=== PATIENT | female | born 1965 | race Caucasian/White ===

== ENCOUNTER 2019-08-23 20:40 | Emergency (ER) | payer OTHER ==
[~2019-08-23] VITALS: Ht 157.5 cm; Wt 102.7 kg
[~2019-08-23 20:40] MED LIST: ASPI-1271 PO; IBUP-2213 PO; METF500T PO; ORE25 PO
[2019-08-23 20:49] VITALS: BP 144/79
--- NOTE | 2019-08-23 20:52 | NUR ---
TO LOBBY A/W BED AMBULATORY
--- NOTE | 2019-08-23 22:12 | NUR ---
PATIENT AMB TO [facility].
--- NOTE | 2019-08-23 22:17 | NUR ---
PATIENT STATES SHE STARTED HAVING INTERMITTENT DIZZINESS ON FRIDAY. TODAY REPORTS HAVING HEAD PRESSURE AND DIZZINESS. PATIENT STATES THE DIZZINESS WILL HAPPEN WHEN SHE MAKE QUICK MOVES OR STANDS UP. PATIENT STATES NO NVD AT THIS TIME. PATIENT DENIES RESPIRITORY SYMPTOMS. NO HISTORY OF THESE SYMPTOMS. PMH: DM, HTN
--- NOTE | 2019-08-23 22:57 | NUR ---
labs collected and sent to lab.
[2019-08-23 23:00] LABS: BASOPHILS % (AUTO) 0.4 % (0.0-2.0); EOSINOPHILS # (AUTO) 0.1 K/uL (0-0.4); EOSINOPHILS % (AUTO) 1.7 % (0.0-4.0); HEMATOCRIT 44.3 % (36-48); HEMOGLOBIN 14.4 g/dL (12.0-16.0); LYMPHOCYTES # (AUTO) 1.7 K/uL (2.5-16.5); LYMPHOCYTES % (AUTO) 19.1 % (20.5-51.1); MEAN CORPUSCULAR HEMOGLOBIN 28 pg (27-31); MEAN CORPUSCULAR HGB CONC 33 g/dL (33-37); MEAN CORPUSCULAR VOLUME 86.5 fL (80-94); MONOCYTES # (AUTO) 0.5 K/uL (0.8-1.0); NEUTROPHILS # (AUTO) 6.5 K/uL (1.8-7.7); NEUTROPHILS % (AUTO) 72.8 % (42.2-75.2); PLATELET COUNT (AUTO) 293 K/uL (140-450); RED BLOOD CELL COUNT(AUTO) 5.12 MIL/uL (4.20-5.40); RED CELL DISTRIBUTION WIDTH 13.6 % (11.6-13.7); WHITE BLOOD COUNT (AUTO) 8.9 K/uL (4.8-10.8)
[2019-08-23 23:14] LABS: ANION GAP 15.9 (8-16); CARBON DIOXIDE 27.3 mmol/L (21-32); CREATININE 0.7 mg/dL (0.6-1.3); POTASSIUM 4.2 mmol/L (3.5-5.1)
[2019-08-24 00:21] VITALS: BP 97/58
--- NOTE | 2019-08-24 00:21 | NUR ---
Patient discharged with v/s stable. She states decreased pain and no dizziness at this time. Written and verbal after care instructions given and explained. Patient alert, oriented and verbalized understanding of instructions. Ambulatory with steady gait. All questions addressed prior to discharge. ID band removed. Patient advised to follow up with PMD. Rx of Meclazine given. Patient educated on indication of medication including possible reaction and side effects. Opportunity to ask questions provided and answered.
== END 2019-08-24 00:21 | disposition home or self-care (01) ==
LOC: MED 20:40
DX: R42 Dizziness and giddiness (principal); R51 Headache; E11.9 Type 2 diabetes mellitus without complications; I10 Essential (primary) hypertension; Z79.82 Long term (current) use of aspirin; Z79.84 Long term (current) use of oral hypoglycemic drugs; Z79.899 Other long term (current) drug therapy
CPT/HCPCS: 36415; 80048; 85025; 99283

== ENCOUNTER 2021-11-30 17:04 | Emergency (ER) | payer OTHER ==
[~2021-11-30] VITALS: Ht 154.9 cm; Wt 97.1 kg
[~2021-11-30 17:04] MED LIST changes: +HYDR-4004 PO; +METF-346 PO; -METF500T PO; -ORE25 PO
[2021-11-30 17:09] VITALS: BP 161/86
--- NOTE | 2021-11-30 17:17 | NUR ---
PT AMBULATED TO BED 04 WITH ASSISTANCE.
--- NOTE | 2021-11-30 17:21 | NUR ---
56 Y/O FEMALE BIB SON C/O 11/06 ACHING PAIN IN THE RIGHT SIDE BY THE RIB AREA, STATED THAT SHE WAS CLEANING THE BATHTUB AND LEANED TOO FORWARD ON THE EDGE OF THE TUB. HEARD A "CRUNCH". PAIN DURING DEEP INHALATION, NO BRUISES OR SKIN TEARS NOTED,. DENIED TAKING ANYTHING FOR PAIN. pmh: dm2, htn nka med: denies
--- NOTE | 2021-11-30 17:28 | NUR ---
[facility] AT BEDSIDE FOR FURTHER EVAL
[2021-11-30] MEDS ORDERED: KETOROLAC 30 MG/ML VIAL IM ONE (17:30)
[2021-11-30] MEDS ORDERED: CYCL-711 PO (18:42)
[2021-11-30] MEDS ORDERED: LID5T TP (18:42)
[2021-11-30] MEDS ORDERED: IBUP-2213 PO (18:42)
--- NOTE | 2021-11-30 19:00 | NUR ---
Patient discharged with v/s stable. Written and verbal after care instructions given and explained. Patient alert, oriented and verbalized understanding of instructions. Ambulatory with steady gait. All questions addressed prior to discharge. ID band removed. Patient advised to follow up with PMD. Rx of FLEXERIL, MOTRIN, LIDODERM, given. Patient educated on indication of medication including possible reaction and side effects. Opportunity to ask questions provided and answered.
== END 2021-11-30 19:00 | disposition home or self-care (01) ==
LOC: MED 17:04
DX: S20.211A Contusion of right front wall of thorax, initial encounter (principal); E11.9 Type 2 diabetes mellitus without complications; I10 Essential (primary) hypertension; Z79.4 Long term (current) use of insulin; X58.XXXA Exposure to other specified factors, initial encounter; Y93.89 Activity, other specified; Y92.89 Other specified places as the place of occurrence of the external cause; Y99.8 Other external cause status
CPT/HCPCS: 71101; 81002; 81025; 96372; 99283; J1885

== ENCOUNTER 2022-02-28 23:10 | Emergency (ER) | payer OTHER ==
[~2022-02-28] VITALS: Ht 154.9 cm; Wt 97.1 kg
[~2022-02-28 23:10] MED LIST changes: +CYCL-711 PO; +LID5T TP
[2022-02-28 23:13] VITALS: BP 153/83
[2022-03-01] MEDS ORDERED: ACET-10509 PO (00:54)
[2022-03-01] MEDS ORDERED: KETOROLAC 30 MG/ML VIAL IM ONE (00:55)
[2022-03-01] MEDS ORDERED: ACETAMINOPHEN 325 MG TAB PO ONE (00:55)
[2022-03-01 01:20] VITALS: BP 146/64
== END 2022-03-01 01:20 | disposition home or self-care (01) ==
LOC: MED 23:10
DX: S09.90XA Unspecified injury of head, initial encounter (principal); E11.9 Type 2 diabetes mellitus without complications; I10 Essential (primary) hypertension; Z79.899 Other long term (current) drug therapy; Z90.49 Acquired absence of other specified parts of digestive tract; Z98.890 Other specified postprocedural states; Z79.84 Long term (current) use of oral hypoglycemic drugs; Z79.82 Long term (current) use of aspirin; W23.0XXA Caught, crushed, jammed, or pinched between moving objects, initial encounter; Y93.89 Activity, other specified; Y92.89 Other specified places as the place of occurrence of the external cause; Y99.8 Other external cause status
CPT/HCPCS: 70450; 96372; 99284; J1885

== ENCOUNTER 2023-07-04 17:50 | Emergency (ER) | payer OTHER ==
[~2023-07-04] VITALS: Ht 154.9 cm; Wt 97.1 kg
[~2023-07-04 17:50] MED LIST changes: +ACET-10509 PO
[2023-07-04 18:04] VITALS: BP 166/85; PULSE 87; RESP 20; TEMP 97.4; O2SAT 100
[2023-07-04 18:16] VITALS: O2SAT 100
[2023-07-04] MEDS ORDERED: MECLIZINE 25 MG TAB PO ONE (18:20)
[2023-07-04 18:42] LABS: BASOPHILS % (AUTO) 0.6 % (0.0-2.0); EOSINOPHILS # (AUTO) 0.1 K/uL (0-0.4); EOSINOPHILS % (AUTO) 0.6 % (0.0-4.0); HEMATOCRIT 38.2 % (36-48); HEMOGLOBIN 13.1 g/dL (12.0-16.0); LYMPHOCYTES # (AUTO) 1.4 K/uL (2.5-16.5); LYMPHOCYTES % (AUTO) 17.2 % (20.5-51.1); MEAN CORPUSCULAR HEMOGLOBIN 29 pg (27-31); MEAN CORPUSCULAR HGB CONC 34 g/dL (33-37); MEAN CORPUSCULAR VOLUME 84.9 fL (80-94); MONOCYTES # (AUTO) 0.5 K/uL (0.8-1.0); MONOCYTES % (AUTO) 6.2 % (1.7-9.3); NEUTROPHILS % (AUTO) 75.4 % (42.2-75.2); PLATELET COUNT (AUTO) 255 K/uL (140-450); RED CELL DISTRIBUTION WIDTH 13.8 % (11.6-13.7)
[2023-07-04 18:57] LABS: ANION GAP 13.1 (8-16); CALCIUM 9.4 mg/dL (8.5-10.1); CARBON DIOXIDE 27.9 mmol/L (21-32); CREATININE 0.8 mg/dL (0.6-1.3)
[2023-07-04 19:04] LABS: ALANINE AMINOTRANSFERASE 16 U/L (12-78); ALBUMIN 3.7 g/dL (3.4-5.0); ALKALINE PHOSPHATASE 84 U/L (50-136); ASPARTATE AMINOTRANSFERASE 15 U/L (15-37); BILIRUBIN,DIRECT 0.1 mg/dL (0.0-0.3); TOTAL BILIRUBIN 0.5 mg/dL (0.0-1.0); TOTAL PROTEIN, SERUM 8.6 g/dL (6.4-8.2)
[2023-07-04] MEDS ORDERED: diphenhydrAMINE 50 MG/ML VIAL IVP ONE (19:45)
[2023-07-04] MEDS ORDERED: KETOROLAC 30 MG/ML VIAL IVP ONE (19:45)
[2023-07-04] MEDS ORDERED: PROCHLORPERAZINE 10 MG/2 ML VIAL IVP ONE (19:45)
[2023-07-04] MEDS ORDERED: NACL 0.9% 1,000 ML IV ONE (19:45)
[2023-07-04] MEDS ORDERED: MECL-303 PO (20:37)
[2023-07-04 20:45] VITALS: PULSE 81
== END 2023-07-04 21:09 | disposition home or self-care (01) ==
LOC: MED 17:50
DX: R42 Dizziness and giddiness (principal); E11.9 Type 2 diabetes mellitus without complications; I10 Essential (primary) hypertension; Z79.4 Long term (current) use of insulin; Z79.899 Other long term (current) drug therapy
CPT/HCPCS: 36415; 70450; 71045; 80048; 80076; 82948; 83735; 84484; 85025; 93005; 96361; 96374; 96375; 99285; J0780; J1200; J1885; J7030; J8597

== ENCOUNTER 2023-12-02 21:59 | Emergency (ER) | payer OTHER ==
[~2023-12-02] VITALS: Ht 154.9 cm; Wt 84.4 kg
[~2023-12-02 21:59] MED LIST changes: +MECL-303 PO
[2023-12-02 22:42] VITALS: BP 154/69; PULSE 71; RESP 16; TEMP 97.4; O2SAT 100
[2023-12-03] MEDS: PROCHLORPERAZINE 10 MG/2 ML VIAL IM ONE (00:47)
[2023-12-03] MEDS: KETOROLAC 30 MG/ML VIAL IM ONE (00:47)
[2023-12-03] MEDS ORDERED: NAPR-337 PO (01:46)
[2023-12-03 01:54] VITALS: BP 142/69; PULSE 72; RESP 16; TEMP 97.4; O2SAT 100
== END 2023-12-03 01:54 | disposition home or self-care (01) ==
LOC: MED 21:59
DX: R51.9 Headache, unspecified (principal); I10 Essential (primary) hypertension; E11.9 Type 2 diabetes mellitus without complications; Z79.4 Long term (current) use of insulin; Z79.899 Other long term (current) drug therapy
CPT/HCPCS: 96372; 99284; J0780; J1885; Q0163

== ENCOUNTER 2024-02-09 20:40 | Emergency (ER) | payer OTHER ==
[~2024-02-09] VITALS: Ht 157.5 cm; Wt 80.7 kg
[~2024-02-09 20:40] MED LIST changes: +NAPR-337 PO
[2024-02-09 21:08] VITALS: BP 149/84; PULSE 82; RESP 18; TEMP 98; O2SAT 98
[2024-02-09 22:15] LABS: APPEARANCE,URINE CLEAR (CLEAR); BILIRUBIN,URINE NEGATIVE (NEGATIVE); BLOOD, URINE NEGATIVE (NEGATIVE); COLOR,URINE YELLOW (YELLOW); LEUKOCYTE ESTERASE ,URINE 1+ (NEGATIVE); NITRITE, URINE NEGATIVE (NEGATIVE); PROTEIN,URINE NEGATIVE (NEGATIVE); UGLUCOSE NEGATIVE (NEGATIVE); UROBILINOGEN,URINE 0.2 EU/dL (0.2 - 1)
[2024-02-09 22:29] LABS: BACTERIA,URINE 10-30 (MOD) /HPF (None Seen); MUCUS,URINE 1+ /LPF (None Seen); RBC,URINE 0-5 /HPF (0-5); SQUAMOUS EPITHELIAL CELL,UR 0-3 (FEW) /LPF (0-3 (FEW))
[2024-02-09 22:34] LABS: BASOPHILS % (AUTO) 0.6 % (0.0-2.0); EOSINOPHILS # (AUTO) 0.1 K/uL (0-0.4); EOSINOPHILS % (AUTO) 1.3 % (0.0-4.0); HEMATOCRIT 37.7 % (36-48); HEMOGLOBIN 12.4 g/dL (12.0-16.0); LYMPHOCYTES # (AUTO) 1.9 K/uL (2.5-16.5); LYMPHOCYTES % (AUTO) 23.8 % (20.5-51.1); MEAN CORPUSCULAR HEMOGLOBIN 28 pg (27-31); MEAN CORPUSCULAR HGB CONC 33 g/dL (33-37); MEAN CORPUSCULAR VOLUME 85.4 fL (80-94); MONOCYTES # (AUTO) 0.6 K/uL (0.8-1.0); MONOCYTES % (AUTO) 7.9 % (1.7-9.3); NEUTROPHILS # (AUTO) 5.2 K/uL (1.8-7.7); NEUTROPHILS % (AUTO) 66.4 % (42.2-75.2); PLATELET COUNT (AUTO) 260 K/uL (140-450); RED BLOOD CELL COUNT(AUTO) 4.42 MIL/uL (4.20-5.40); RED CELL DISTRIBUTION WIDTH 13.8 % (11.6-13.7); WHITE BLOOD COUNT (AUTO) 7.9 K/uL (4.8-10.8)
[2024-02-09 22:48] LABS: ANION GAP 14.2 (8-16); CALCIUM 9.5 mg/dL (8.5-10.1); CARBON DIOXIDE 25.8 mmol/L (21-32); CREATININE 0.8 mg/dL (0.6-1.3)
[2024-02-09 22:54] LABS: ALBUMIN 3.8 g/dL (3.4-5.0); BILIRUBIN,DIRECT 0.1 mg/dL (0.0-0.3); TOTAL BILIRUBIN 0.5 mg/dL (0.0-1.0); TOTAL PROTEIN, SERUM 7.6 g/dL (6.4-8.2)
[2024-02-10] MEDS ORDERED: LIDOCAINE MPF 1% 5 ML ONE (00:32)
[2024-02-10] MEDS ORDERED: cefTRIAXone 1,000 MG VIAL ONE (00:32)
[2024-02-10] MEDS: cefTRIAXone 1,000 MG in LIDOCAINE MPF 1% 2.1 ML IM ONE (00:34)
[2024-02-10] MEDS ORDERED: NITR100C7 PO (00:36)
[2024-02-10 00:44] VITALS: BP 144/87; PULSE 72; RESP 14; TEMP 98.1; O2SAT 98
== END 2024-02-10 00:37 | disposition home or self-care (01) ==
LOC: MED 20:40
DX: N39.0 Urinary tract infection, site not specified (principal); I10 Essential (primary) hypertension; E11.9 Type 2 diabetes mellitus without complications; Z79.84 Long term (current) use of oral hypoglycemic drugs; Z79.82 Long term (current) use of aspirin; Z79.899 Other long term (current) drug therapy
CPT/HCPCS: 36415; 80048; 80076; 81001; 82948; 83690; 85025; 87086; 96372; 99283; J0696; J2001

== ENCOUNTER 2024-02-10 20:35 | Emergency (ER) | payer OTHER ==
[~2024-02-10] VITALS: Ht 157.5 cm; Wt 80.7 kg
[~2024-02-10 20:35] MED LIST changes: +NITR100C7 PO
[2024-02-10 21:07] VITALS: BP 147/86; PULSE 80; RESP 16; TEMP 97.4; O2SAT 100
[2024-02-10] MEDS: NACL 0.9% 1,000 ML IV ONE (23:24)
[2024-02-10 23:33] LABS: BASOPHILS % (AUTO) 0.6 % (0.0-2.0); EOSINOPHILS % (AUTO) 0.7 % (0.0-4.0); HEMATOCRIT 40.1 % (36-48); HEMOGLOBIN 13.2 g/dL (12.0-16.0); LYMPHOCYTES # (AUTO) 1.7 K/uL (2.5-16.5); LYMPHOCYTES % (AUTO) 23.8 % (20.5-51.1); MEAN CORPUSCULAR HEMOGLOBIN 28 pg (27-31); MEAN CORPUSCULAR HGB CONC 33 g/dL (33-37); MONOCYTES # (AUTO) 0.6 K/uL (0.8-1.0); NEUTROPHILS # (AUTO) 4.9 K/uL (1.8-7.7); NEUTROPHILS % (AUTO) 66.9 % (42.2-75.2); PLATELET COUNT (AUTO) 271 K/uL (140-450); RED BLOOD CELL COUNT(AUTO) 4.72 MIL/uL (4.20-5.40); RED CELL DISTRIBUTION WIDTH 13.6 % (11.6-13.7); WHITE BLOOD COUNT (AUTO) 7.3 K/uL (4.8-10.8)
[2024-02-10 23:44] LABS: APPEARANCE,URINE CLEAR (CLEAR); BILIRUBIN,URINE NEGATIVE (NEGATIVE); BLOOD, URINE NEGATIVE (NEGATIVE); COLOR,URINE YELLOW (YELLOW); LEUKOCYTE ESTERASE ,URINE TRACE (NEGATIVE); NITRITE, URINE NEGATIVE (NEGATIVE); PROTEIN,URINE NEGATIVE (NEGATIVE); UGLUCOSE NEGATIVE (NEGATIVE); UROBILINOGEN,URINE 0.2 EU/dL (0.2 - 1)
[2024-02-10 23:45] VITALS: BP 147/86; PULSE 80; RESP 16; TEMP 97.4; O2SAT 100
[2024-02-10 23:47] LABS: ALBUMIN 4.2 g/dL (3.4-5.0); CALCIUM 9.5 mg/dL (8.5-10.1); CARBON DIOXIDE 25.4 mmol/L (21-32); CREATININE 0.9 mg/dL (0.6-1.3); POTASSIUM 3.4 mmol/L (3.5-5.1); TOTAL BILIRUBIN 0.6 mg/dL (0.0-1.0); TOTAL PROTEIN, SERUM 8.5 g/dL (6.4-8.2)
[2024-02-11 00:04] LABS: RBC,URINE 0-5 /HPF (0-5)
[2024-02-11 00:05] LABS: BACTERIA,URINE 10-30 (MOD) /HPF (None Seen); MUCUS,URINE 1+ /LPF (None Seen); SQUAMOUS EPITHELIAL CELL,UR 0-3 (FEW) /LPF (0-3 (FEW))
[2024-02-11] MEDS: POTASSIUM CHLORIDE 10 MEQ TABER PO ONE (00:54)
== END 2024-02-11 03:29 | disposition home or self-care (01) ==
LOC: MED 20:35
DX: N39.0 Urinary tract infection, site not specified (principal); K59.00 Constipation, unspecified; R55 Syncope and collapse; E11.9 Type 2 diabetes mellitus without complications; I10 Essential (primary) hypertension; Z79.899 Other long term (current) drug therapy; Z79.82 Long term (current) use of aspirin
CPT/HCPCS: 36415; 80053; 81001; 83690; 85025; 87086; 96360; 99283; J7030

== ENCOUNTER 2024-04-13 16:28 | Emergency (ER) | payer OTHER ==
[~2024-04-13] VITALS: Ht 157.5 cm; Wt 79.6 kg
[~2024-04-13 16:28] MED LIST changes: -ACET-10509 PO; +ACET500T99 PO
[2024-04-13 16:38] VITALS: BP 132/78; PULSE 89; RESP 16; TEMP 97.9; O2SAT 100
[2024-04-13 16:55] VITALS: TEMP 98.1
[2024-04-13 17:35] LABS: BASOPHILS % (AUTO) 0.5 % (0.0-2.0); EOSINOPHILS # (AUTO) 0.1 K/uL (0-0.4); EOSINOPHILS % (AUTO) 0.7 % (0.0-4.0); HEMOGLOBIN 12.4 g/dL (12.0-16.0); LYMPHOCYTES # (AUTO) 1.2 K/uL (2.5-16.5); MEAN CORPUSCULAR HEMOGLOBIN 28 pg (27-31); MEAN CORPUSCULAR HGB CONC 33 g/dL (33-37); MEAN CORPUSCULAR VOLUME 84.7 fL (80-94); MONOCYTES # (AUTO) 0.5 K/uL (0.8-1.0); MONOCYTES % (AUTO) 6.4 % (1.7-9.3); NEUTROPHILS # (AUTO) 5.8 K/uL (1.8-7.7); NEUTROPHILS % (AUTO) 76.4 % (42.2-75.2); PLATELET COUNT (AUTO) 250 K/uL (140-450); RED BLOOD CELL COUNT(AUTO) 4.37 MIL/uL (4.20-5.40); RED CELL DISTRIBUTION WIDTH 14.8 % (11.6-13.7); WHITE BLOOD COUNT (AUTO) 7.7 K/uL (4.8-10.8)
[2024-04-13 17:54] LABS: ANION GAP 14.7 (8-16); CALCIUM 8.9 mg/dL (8.5-10.1); CARBON DIOXIDE 23.8 mmol/L (21-32); CREATININE 0.8 mg/dL (0.6-1.3); POTASSIUM 3.5 mmol/L (3.5-5.1)
[2024-04-13 18:01] LABS: MAGNESIUM 1.8 mg/dL (1.8-2.4)
[2024-04-13] MEDS: KETOROLAC 30 MG/ML VIAL IM ONE (18:35)
[2024-04-13 19:43] VITALS: BP 133/64; PULSE 77; RESP 16; O2SAT 100
== END 2024-04-13 20:38 | disposition home or self-care (01) ==
LOC: MED 16:28
DX: R07.9 Chest pain, unspecified (principal); R51.9 Headache, unspecified; R20.0 Anesthesia of skin; M79.604 Pain in right leg; M79.605 Pain in left leg; E11.9 Type 2 diabetes mellitus without complications; I10 Essential (primary) hypertension; Z79.899 Other long term (current) drug therapy; Z79.82 Long term (current) use of aspirin
CPT/HCPCS: 36415; 80048; 83735; 84100; 84484; 85025; 93005; 96372; 99284; J1885